=== PATIENT | female | born 1965 | race Caucasian/White ===

== ENCOUNTER 2016-11-25 19:28 | Emergency (ER) | payer OTHER ==
[2016-11-25 19:58] VITALS: BP 131/79
--- NOTE | 2016-11-25 20:33 | UC ---
Abdominal Pain Female HPI - HPI Summary HPI Summary: Abdominal pain since last night, fever today. Feels very gassy and distended, lots of stomach gurgling, poor appetite. Last night had urinary frequency without pain. Today pain with position changes, feels betting lying curled up. Has had gallbladder pain in the past, but that is in an entirely different place. Last BM 2 days ago, she thinks. - History of Current Complaint Chief Complaint: UCAbdominalPain Stated Complaint: ABDOMINAL PAIN Time Seen by Provider: 11/25/16 20:09 Hx Obtained From: Patient Hx Last Menstrual Period: 2 weeks ago ?: No Onset/Duration: Gradual Onset, Lasting Hours Timing: Constant Severity Initially: Moderate Severity Currently: Moderate Location: Diffuse, Epigastric Radiates: No Character: Cramping, Dull Aggravating Factor(s): Nothing Alleviating Factor(s): Nothing Associated Signs and Symptoms: Positive: Fever, Urinary Symptoms. Negative: Blood in Stool, Vaginal Bleeding, Vaginal Discharge, Nausea, Vomiting, Diarrhea Allergies/Adverse Reactions: Allergies Allergy/AdvReac Type Severity Reaction Status Date / Time Sulfites Allergy Rash Verified 11/25/16 19:51 PMH/Surg Hx/FS Hx/Imm Hx Endocrine History Of: Denies: Diabetes Cardiovascular History Of: Denies: Hypertension, Pacemaker/ICD Respiratory History Of: Denies: Asthma GI/ History Of: Denies: Renal Disease - Surgical History Surgical History: Yes Surgery Procedure, Year, and Place: [id number] - Family History Known Family History: Positive: Other - biliary colic - Social History Lives: With Family Alcohol Use: Daily Substance Use Type: None Smoking Status (MU): Never Smoked Tobacco Review of Systems Constitutional: Negative Skin: Negative Eyes: Negative ENT: Negative Respiratory: Negative Cardiovascular: Negative Gastrointestinal: Abdominal Pain Genitourinary: Negative Motor: Negative Neurovascular: Negative Musculoskeletal: Negative Neurological: Negative Psychological: Negative All Other Systems Reviewed And Are Negative: Yes Physical Exam Triage Information Reviewed: Yes Appearance: Well-Nourished, Pain Distress - mild Vital Signs: Initial Vital Signs Temp 100.7 F 11/25/16 19:52 Pulse 93 11/25/16 19:52 Resp 16 11/25/16 19:52 BP 131/79 11/25/16 19:52 Pulse Ox 96 11/25/16 19:52 Vital Signs Reviewed: Yes Eye Exam: Normal Eyes: Positive: Conjunctiva Clear ENT Exam: Normal ENT: Positive: Normal ENT inspection, Hearing grossly normal, Pharynx normal, TMs normal Dental Exam: Normal Neck exam: Normal Neck: Positive: Supple, Nontender, No Lymphadenopathy Respiratory Exam: Normal Respiratory: Positive: Chest non-tender, Lungs clear, Normal breath sounds, No respiratory distress, No accessory muscle use Cardiovascular Exam: Normal Cardiovascular: Positive: RRR, No Murmur Abdomen Description: Positive: Distended, Guarding, Peritoneal Signs. Negative : Nontender - diffuse tenderness, worse at epigastrum, CVA Tenderness (R), CVA Tenderness (L), McBurney's Point Tenderness Bowel Sounds: Positive: Present - hyperactive Musculoskeletal Exam: Normal Neurological Exam: Normal Neurological: Positive: Alert Psychological Exam: Normal Skin Exam: Normal Abd Pain Female Course/Dx - Differential Dx/Diagnosis Differential Diagnosis: Appendicitis, Bowel Obstruction, Constipation, Diverticulitis, Gall Bladder Disease, Pneumonia, Urinary Tract Infection Provider Diagnoses: epigastric abdominal pain. fever Discharge - Discharge Plan Condition: Stable Disposition: AGAINST MEDICAL ADVICE Patient Education Materials: Acute Abdominal Pain (ED) Referrals: Gary Hurley MD [Primary Care Provider] - Additional Instructions: As we discussed, I am unable to determine the cause of your pain here tonight. However, several features of your symptoms make me concerned that you may have a serious problem. Pain in the upper abdomen can come from the stomach, esophagus, gallbladder, liver, pancreas, diaphragm, lungs, heart, or intestines. Your fever and level of pain suggest a possible infection. Please go right to the hospital if you experience worsening pain, vomiting, shaking chills, prolonged fever, or if you fail to improve in the next few hours.
== END 2016-11-25 20:39 | disposition left against medical advice (07) ==
LOC: UCEAST 19:28
DX: R10.13 Epigastric pain (principal); R50.9 Fever, unspecified; R35.0 Frequency of micturition
CPT/HCPCS: 81003; 99212; G0463

== ENCOUNTER 2017-01-07 21:01 | Emergency (ER) | payer OTHER ==
[2017-01-07 21:11] VITALS: BP 148/97
--- NOTE | 2017-01-07 21:30 | UC ---
UC General HPI - HPI Summary HPI Summary: The patient comes in today for: 1. Abdominal bloating/enlargement: Onset: Today. Palliative/provocative: Not eating makes it better. Quality: No pain at this time. Region: ABdomen Severity: 0/10 Time: Constant. Associated symptoms: Fevers: None. Vomiting: None Diarrhea: None Previous disease: She had this before about 1.5 months ago. It got better, but would tend to come and go. She saw her primary care provider for this as well as the GI provider. The diagnosis was never mentioned. But, they ordered CT scan and "update test" for "fermentation solution." She had also an order for a colonoscopy which has not been done. She went to the CT scan but later decided to not do it. The patient states that she called her primary care provider's answering service and was told to come in to see us or go to the ER. - History of Current Complaint Chief Complaint: UCAbdominalPain Stated Complaint: ABD SWELLING,HIP AND BACK PAIN Time Seen by Provider: 01/07/17 21:19 Hx Obtained From: Patient, Family/Deburrer - Allergy/Home Medications Allergies/Adverse Reactions: Allergies Allergy/AdvReac Type Severity Reaction Status Date / Time Sulfites Allergy Rash Verified 01/07/17 21:11 ANESTHESIA Allergy MADE PT Uncoded 01/02/17 09:27 COLD AND SHAKY DURING C SECTIONS PMH/Surg Hx/FS Hx/Imm Hx Previously Healthy: No - Back pain on Flexeril - Surgical History Surgical History: Yes Surgery Procedure, Year, and Place: [id number] - Family History Known Family History: Positive: Cardiac Disease, Other - biliary colic Negative: Hypertension - Social History Occupation: Employed Full-time Alcohol Use: Daily Substance Use Type: None Smoking Status (MU): Never Smoked Tobacco Review of Systems Constitutional: Negative Skin: Negative Eyes: Negative ENT: Negative Respiratory: Negative Cardiovascular: Negative Gastrointestinal: Negative Genitourinary: Negative All Other Systems Reviewed And Are Negative: Yes Physical Exam Triage Information Reviewed: Yes Appearance: Well-Appearing, No Pain Distress, Well-Nourished Vital Signs: Initial Vital Signs Temp 98.4 F 01/07/17 21:11 Pulse 92 01/07/17 21:11 Resp 16 01/07/17 21:11 BP 148/97 01/07/17 21:11 Pulse Ox 96 01/07/17 21:11 Vital Signs Reviewed: Yes Eyes: Positive: Conjunctiva Clear. Negative: Discharge ENT: Positive: Hearing grossly normal. Negative: Pharyngeal erythema, Nasal congestion, Nasal drainage, TM bulging, TM dull, TM red, Tonsillar swelling, Tonsillar exudate Dental: Negative: Gross Decay/Caries @, Dental Fracture @ Neck: Positive: Supple, Nontender, No Lymphadenopathy. Negative: Nuchal Rigidity Respiratory: Positive: Chest non-tender, Lungs clear, No respiratory distress, No accessory muscle use. Negative: Crackles, Wheezing Cardiovascular: Positive: RRR, No Murmur Abdomen Description: Positive: Nontender, No Organomegaly, Soft, Other: - Increase in tympany.. Negative: Distended, Guarding Bowel Sounds: Positive: Present Musculoskeletal: Positive: Strength Intact, ROM Intact, No Edema Neurological: Positive: Alert, Muscle Tone Normal Psychological: Positive: Age Appropriate Behavior, Consolable Skin: Negative: rashes, breakdown Course/Dx - Course Course Of Treatment: Patient was told that her benign exam at this time suggests that she does not need to go to the ER. 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 - Differential Dx - Multi-Symptom Provider Diagnoses: Abdominal bloating. Discharge - Discharge Plan Condition: Stable Disposition: HOME Patient Education Materials: Gas and Bloating (ED) Referrals: Gary Hurley MD [Primary Care Provider] - As Soon As Possible (Please contact your primary care provider tomorrow for a follow-up appointment.)
== END 2017-01-07 22:15 | disposition home or self-care (01) ==
LOC: UCEAST 21:01
DX: R14.0 Abdominal distension (gaseous) (principal)
CPT/HCPCS: 99212; G0463

== ENCOUNTER 2018-07-06 10:54 | Emergency (ER) | payer OTHER ==
[2018-07-06 11:13] VITALS: BP 138/96
--- NOTE | 2018-07-06 11:21 | UC ---
Lower Extremity/Ankle HPI - HPI Summary HPI Summary: 52-year-old woman comes to clinic today after falling off a horse. This happened yesterday. Her chief complaint is pain at the right ankle foot and the right fourth finger. All these areas are bruised and swollen and tender to palpation and they hurt with movement better with rest. Denies any other injuries. Patient has a right fourth finger that she's declining to have taken off. - History of Current Complaint Chief Complaint: UCLowerExtremity Stated Complaint: R HAND, ANKLE INJURY Time Seen by Provider: 07/06/18 11:05 Hx Last Menstrual Period: na Pain Intensity: 1 - Allergies/Home Medications Allergies/Adverse Reactions: Allergies Allergy/AdvReac Type Severity Reaction Status Date / Time Sulfa (Sulfonamide Allergy Mild Rash Verified 07/06/18 11:14 Antibiotics) ANESTHESIA AdvReac MADE PT Uncoded 06/27/17 10:48 COLD AND SHAKY DURING C SECTIONS PMH/Surg Hx/FS Hx/Imm Hx Previously Healthy: Yes - Surgical History Surgical History: Yes Surgery Procedure, Year, and Place: [id number]. EXPLORATORY SURG TO HYSTERECTOMY - Family History Known Family History: Positive: Cardiac Disease, Other - biliary colic Negative: Hypertension - Social History Alcohol Use: Daily Substance Use Type: None Smoking Status (MU): Never Smoked Tobacco Review of Systems All Other Systems Reviewed And Are Negative: Yes Constitutional: Positive: Negative Skin: Positive: Bruising Eyes: Positive: Negative ENT: Positive: Negative Respiratory: Positive: Negative Cardiovascular: Positive: Negative Motor: Positive: Negative Neurovascular: Positive: Negative Musculoskeletal: Positive: Other: - SEE HPI Neurological: Positive: Negative Psychological: Positive: Negative Is Patient Immunocompromised?: No Physical Exam Triage Information Reviewed: Yes Appearance: Well-Appearing, Well-Nourished, Pain Distress - MILD Vital Signs: Initial Vital Signs Temp 98.6 F 07/06/18 11:05 Pulse 75 07/06/18 11:05 Resp 18 07/06/18 11:05 BP 138/96 07/06/18 11:05 Pulse Ox 100 07/06/18 11:05 Vital Signs Reviewed: Yes Eye Exam: Normal Eyes: Positive: Conjunctiva Clear Neck exam: Normal Neck: Positive: Supple, Nontender Respiratory: Positive: Lungs clear, Normal breath sounds, No respiratory distress Cardiovascular Exam: Normal Cardiovascular: Positive: RRR Abdomen Description: Positive: Nontender, Soft Bowel Sounds: Positive: Present Musculoskeletal: Positive: Other: - Patient's fourth finger is swollen with ecchymosis the full length of the finger. She has pain with any attempt at range of motion. She does have a ring on that finger that she refuses to take off or have us cut it off. Right ankle and foot are swollen and tender on the lateral aspects over the lateral malleolus and the proximal fifth metatarsal. Normal capillary refill normal pulses no sensation deficits in any of these injured areas. Neurological Exam: Normal Neurological: Positive: Alert, Muscle Tone Normal Psychological Exam: Normal Psychological: Positive: Normal Response To Family, Age Appropriate Behavior Skin: Positive: Other - BRUISING RT 4TH FINGER AND LATERAL RT ANKLE AND FOOT Lower Extremity Course/Dx - Course Course Of Treatment: Order Information: FOOT RIGHT 3+ VWS. Accession Number: [id number]. CPT: 06478. Indication: RIGHT ankle and foot pain post fall from horse. Previous fifth metatarsal. fracture in 2013. Comparison: July 08, 2014 radiographs. Technique: AP, lateral, and oblique views RIGHT foot. REPORT AND IMPRESSION: #. Bone density appears decreased throughout. #. Healed fracture at the distal diaphysis metaphysis junction of the fifth metatarsal. #. No acute fracture or articular malalignment. #. Mild nonfocal soft tissue swelling. ___. <Electronically signed by Howard Villanueva MD in [place]> 07/06/18 1151. Order Information: FINGER RIGHT RING. Accession Number: [id number]. CPT: 09400. Indication: Pain and swelling post fall from horse. Comparison: July 15, 2014 DEXA scan. Technique: 3 views RIGHT fourth finger. REPORT AND IMPRESSION: #. Mildly comminuted fracture involving the proximal metaphysis through head of the. fourth middle phalanx with only minimal resulting articular surface incongruity. #. Soft tissue swelling from the level of a constricting ring (extrinsic jewelry) at the. level of the proximal diaphysis of the proximal phalanx extending distal. #. Normal articular alignment. . < Electronically signed by Howard Villanueva MD in [facility]> 07/06/18 1159. Order Information: ANKLE RIGHT 3+VWS. Accession Number: [id number]. CPT: 84678. Indication: RIGHT ankle and foot pain post fall from horse. Comparison: July 08, 2014 RIGHT foot exam. Technique: AP, mortise, and lateral views RIGHT ankle. Report: Negative for fracture or malalignment. Preserved joint spaces. Os peroneum. accessory ossicles noted. Mild nonfocal soft tissue swelling. IMPRESSION: #. Negative for RIGHT ankle fracture or malalignment. _ . <Electronically signed by Howard Villanueva MD in [place]> 07/06/18 5074. I discussed the x-ray results with the patient and her family. The patient again refused to have her ring removed from her fractured right ring finger. The finger has good capillary refill at this time the ring can be spun around the finger but it cannot be removed without cutting the ring at this time. I let the patient know to keep the hand elevated and if she felt like she was losing circulation in the finger she needs to get the ring cut off right away either here or at the emergency department. The finger was splinted and for the ankle and foot Severiano wrap and gel splint was applied by nursing. All these areas were neurovascularly intact after splinting. Patient will follow-up with orthopedics. Reevaluation sooner if worse. - Differential Dx/Diagnosis Provider Diagnosis: Fracture of phalanx of right ring finger, Right ankle sprain, Right foot sprain Discharge - Sign-Out/Discharge Documenting (check all that apply): Patient Departure All imaging exams completed and their final reports reviewed: Yes - Discharge Plan Condition: Stable Disposition: HOME Patient Education Materials: Finger Fracture (ED), Ankle Sprain (ED), Foot Sprain (ED) Referrals: Gary Hurley MD [Primary Care Provider] - Yvonne Rivero MD [Medical Doctor] - Additional Instructions: FOLLOW UP WITH DR RIVERO, ORTHOPEDICS. GET RECHECKED SOONER FOR ANY WORSENING OF YOUR CONDITION; PAIN, LOSS OF CIRCULATION OR QUESTIONS OR CONCERNS. GET THE RING CUT OFF EITHER HERE OR IN THE EMERGENCY DEPARTMENT. - Billing Disposition and Condition Condition: STABLE Disposition: Home
== END 2018-07-06 12:20 | disposition home or self-care (01) ==
LOC: UCEAST 10:54
DX: S62.654A Nondisplaced fracture of middle phalanx of right ring finger, initial encounter for closed fracture (principal); S93.401A Sprain of unspecified ligament of right ankle, initial encounter; S93.601A Unspecified sprain of right foot, initial encounter; V80.010A Animal-rider injured by fall from or being thrown from horse in noncollision accident, initial encounter; Y93.52 Activity, horseback riding; Y92.9 Unspecified place or not applicable; Z88.4 Allergy status to anesthetic agent; Z88.2 Allergy status to sulfonamides
CPT/HCPCS: 73140; 99213; G0463

== ENCOUNTER 2018-08-19 13:48 | Emergency (ER) | payer OTHER ==
--- NOTE | 2018-08-19 13:51 | UC ---
Lower Extremity/Ankle HPI - HPI Summary HPI Summary: 53 yo female presents with RIGHT ankle pain. 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 Has had pain since and has not been able to put much weight on her foot/ankle. She has taken 400mg ibuprofen for her discomfort. Denies numbness or tingling. - History of Current Complaint Stated Complaint: ANKLE INJURY Time Seen by Provider: 08/19/18 13:50 Hx Obtained From: Patient Hx Last Menstrual Period: na Onset/Duration: Sudden Onset Severity Initially: Moderate Severity Currently: Moderate Pain Intensity: 6 Pain Scale Used: 0-10 Numeric Aggravating Factor(s): Standing, Ambulation Alleviating Factor(s): Rest, Elevation, Ice Able to Bear Weight: Yes - Allergies/Home Medications Allergies/Adverse Reactions: Allergies Allergy/AdvReac Type Severity Reaction Status Date / Time Sulfa (Sulfonamide Allergy Mild Rash Verified 07/06/18 11:14 Antibiotics) ANESTHESIA AdvReac MADE PT Uncoded 06/27/17 10:48 COLD AND SHAKY DURING C SECTIONS Home Medications: Home Medications Ibuprofen 200 mg PO SEE INSTRUCTIONS PRN 08/19/18 [History Confirmed 08/19/18] PMH/Surg Hx/FS Hx/Imm Hx - Additional Past Medical History Additional PMH: None - Surgical History Surgical History: Yes Surgery Procedure, Year, and Place: [id number]. EXPLORATORY SURG TO HYSTERECTOMY - Family History Known Family History: Positive: Cardiac Disease, Other - biliary colic Negative: Hypertension - Social History Alcohol Use: Daily Substance Use Type: None Smoking Status (MU): Never Smoked Tobacco Review of Systems All Other Systems Reviewed And Are Negative: Yes Constitutional: Positive: Negative Skin: Positive: Negative Respiratory: Positive: Negative Cardiovascular: Positive: Negative Neurovascular: Positive: Negative Musculoskeletal: Positive: Other: - Right ankle pain Neurological: Positive: Negative Psychological: Positive: Negative Physical Exam - Summary Physical Exam Summary: GENERAL: NAD. WDWN. No pain distress. SKIN: No rashes, sores, lesions, or open wounds. CHEST: No accessory muscle use. Breathing comfortably and in no distress. CV: Pulses intact PT and DP. Cap refill <2seconds MSK: RIGHT ANKLE: Moderate TTP over ATFL. Decreased inversion and plantar flexion due to pain. No edema or obvious bony deformities. Negative talar tilt. No increased laxity. NEURO: Alert. Sensations intact and symmetric B/L LEs PSYCH: Age appropriate behavior. Triage Information Reviewed: Yes Vital Signs: Vital Signs: Temp Pulse Resp BP Pulse Ox 98.6 F 77 18 140/93 100 08/19/18 13:58 08/19/18 13:58 08/19/18 13:58 08/19/18 13:58 08/19/18 13:58 Vital Signs Reviewed: Yes Lower Extremity Course/Dx - Course Course Of Treatment: XR: IMPRESSION: #. Mild soft tissue swelling over the lateral malleolus without evidence for fracture or. malalignment. Pt placed in CAM boot and advised to RICE and use crutches as needed. F/u with orthopedics if symptoms do not improve. - Differential Dx/Diagnosis Provider Diagnosis: Right ankle sprain Discharge - Sign-Out/Discharge Documenting (check all that apply): Patient Departure All imaging exams completed and their final reports reviewed: Yes - Discharge Plan Condition: Stable Disposition: HOME Patient Education Materials: Ankle Sprain (ED) Forms: *Work Release Referrals: Gary Hurley MD [Primary Care Provider] - Shay Contreras MD [Medical Doctor] - If Needed Additional Instructions: If you develop a fever, shortness of breath, chest pain, new or worsening symptoms - please call your PCP or go to the ED. Your blood pressure was high at todays visit. Please see your primary provider within 4 weeks for recheck and re-evaluation. 1) Rest, Ice, and elevate your ankle/foot as much as possible 2) Use the walking boot as much as possible to relieve pain 3) Please call Orthopedics at the number below to schedule a follow up appointment if needed - Billing Disposition and Condition Condition: STABLE Disposition: Home - Attestation Statements Provider Attestation: I was available for consult. This patient was seen by the JOSIAS. The patient was not presented to, seen by, or examined by me. -Kaila
--- OUTSIDE RECORDS SUMMARY | 2018-08-19 13:53 | XMS REPORT | Continuity of Care Document ---
:1965 External Reference #:[id number] Author Name Tiffany Salazar Care Team Providers Name Role Phone Gary Hurley MD Primary Care Physician Unavailable Payers Type Date Identification Numbers Payment Provider Subscriber Policy Number: [id number] [employer] Number: [id number] [address] PayID: [id number] [place] [address] Advance Directives Description No Information Available Problems Description No Information Family History Date Family Member(s) Problem(s) Comments General diabetes General Colon Cancer General Kidney Disease Born with one kidney General Aortic Aneurysm General Epilepsy Social History Type Date Description Comments Sex Unknown Lives With Family ETOH Use Occasionally consumes alcohol Tobacco Use Start: Unknown Patient has never smoked Recreational Drug Use Never Used Drugs Smoking Status Reviewed: 08/07/18 Patient has never smoked Exercise Type/Frequency Exercises regularly Allergies, Adverse Reactions, Alerts Date Description Reaction Status Severity Comments 03/11/2017 Sulfites eczema Active Medications Description No Active Medications Immunizations CPT Code Status Date Vaccine Lot # [id number] Given 05/13/2010 Influenza Virus 3Yrs & Over Vital Signs Date Vital Result Comment 08/07/2018 9:39am Height 68.5 inches 5'8.50" Weight 160.00 lb Heart Rate 68 /min BP Systolic 118 mmHg BP Diastolic 80 mmHg Respiratory Rate 18 /min Pain Level 2 BMI (Body Mass Index) 24.0 kg/m2 07/16/2018 10:15am Height 68.5 inches 5'8.50" Weight 160.00 lb Heart Rate 64 /min BP Systolic Sitting 122 mmHg BP Diastolic Sitting 90 mmHg Pain Level 1 BMI (Body Mass Index) 24.0 kg/m2 07/08/2018 10:14am Height 68.5 inches 5'8.50" Weight 160.00 lb Heart Rate 74 /min BP Systolic Sitting 118 mmHg BP Diastolic Sitting 88 mmHg Pain Level 1 BMI (Body Mass Index) 24.0 kg/m2 03/11/2017 10:51am Height 68.5 inches 5'8.50" Weight 146.50 lb Heart Rate 72 /min BP Systolic Sitting 126 mmHg BP Diastolic Sitting 80 mmHg Pain Level 3 BMI (Body Mass Index) 21.9 kg/m2 08/26/2014 8:42am Height 68.5 inches 5'8.50" Heart Rate 79 /min BP Systolic 137 mmHg BP Diastolic 88 mmHg 08/05/2014 10:05am Height 68.5 inches 5'8.50" Heart Rate 72 /min 07/12/2014 2:18pm Height 68.5 inches 5'8.50" Heart Rate 72 /min BP Systolic 134 mmHg BP Diastolic 75 mmHg Results Description No Information Available Procedures Date Code Description Status 08/05/2014 28316 Rad Exam; Foot Limited Completed 07/14/2014 635166256 Bone Mineral Density Test Completed 07/12/2014 36649 FX Metatarsal Care Completed Encounters Type Date Location Provider Dx Diagnosis Office Visit 07/16/2018 Orthopedic Latha Raymundo, S62.654A Nondisp fx of 10:00a [facility] middle phalanx of right ring finger, init S93.401D Sprain of unspecified ligament of right ankle, subs encntr Office Visit 07/08/2018 9:30a Orthopedic Samuel S93.401A Sprain of [facility] unspecified C.M.A. ligament of right ankle, init encntr S62.604B Fracture of unsp phalanx of r rng fngr, init for opn fx Office Visit 03/11/2017 10:45a Neurosurgery Peggy Hoskins, M46.1 Sacroiliitis, not [facility] elsewhere classified Plan of Treatment Future Appointment(s):08/28/2018 9:15 am - Latha Raymundo M.D. at [facility]08/07/2018 - Sheridan Schuster, [facility]-CS62.654D Nondisplaced fracture of middle phalanx of right ring fingerNew Therapy:Physical TherapyFollow up:Follow up: 2 -3 weeks
[2018-08-19 14:07] VITALS: BP 140/93
[2018-08-19] MEDS ORDERED: Ibuprofen TAB* 600 MG PO ONE (14:08)
== END 2018-08-19 15:07 | disposition home or self-care (01) ==
LOC: UCEAST 13:48
DX: S93.401A Sprain of unspecified ligament of right ankle, initial encounter (principal); X50.1XXA Overexertion from prolonged static or awkward postures, initial encounter; Y92.9 Unspecified place or not applicable; Z88.4 Allergy status to anesthetic agent; Z88.2 Allergy status to sulfonamides
CPT/HCPCS: 99213; G0463

== ENCOUNTER 2019-08-17 22:03 | Emergency (ER) | payer OTHER ==
--- OUTSIDE RECORDS SUMMARY | 2019-08-17 22:15 | XMS REPORT | Continuity of Care Document ---
:1965 External Reference #:[id number] Author Name Tati Silvestre MD (transmitted by agent of provider Olman Madrid) Address [address] [place] [address] Care Team Providers Name Role Phone Gary Hurley MD - Family Care Team Information Collar Separator [phone] Medicine Problems Description No Information Available Social History Type Date Description Comments Sex Unknown ETOH Use Occasionally consumes alcohol Tobacco Use Start: Unknown Patient has never smoked Recreational Drug Use Never Used Drugs Smoking Status Reviewed: 07/16/19 Patient has never smoked Exercise Type/Frequency Exercises regularly Allergies, Adverse Reactions, Alerts Active Allergies Reaction Severity Comments Date Sulfites eczema 03/11/2017 Terconazole "too strong" 07/14/2019 Medications Description No Active Medications Immunizations CPT Code Status Date Vaccine Lot # [id number] Given 05/13/2010 Influenza Virus 3Yrs & Over Vital Signs Date Vital Result Comment 07/16/2019 9:38am Height 68.5 inches 5'8.50" Weight 160.00 lb Heart Rate 84 /min BP Systolic Sitting 128 mmHg BP Diastolic Sitting 80 mmHg Respiratory Rate 16 /min Body Temperature 97.2 F BMI (Body Mass Index) 24.0 kg/m2 08/28/2018 9:22am Height 68.5 inches 5'8.50" Weight 160.00 lb BP Systolic 128 mmHg BP Diastolic 86 mmHg Respiratory Rate 16 /min Body Temperature 97.0 F Pain Level 2 BMI (Body Mass Index) 24.0 kg/m2 Results Description No Information Available Procedures Date Code Description Status 06/24/2019 95752025 Mammogram Completed 07/14/2014 [id number] Bone Mineral Density Test Completed Medical Devices Description No Information Available Encounters Type Date Location Provider Dx Diagnosis Office Visit 07/[facility] T[facility] Silvest[facility], N64.59 Other signs and 9:30a [facility] MD symptoms in breast Assessments Date Code Description Provider 07/16/2019 N64.59 Other signs and symptoms in breast Tati Silvestre MD Plan of Treatment Future Appointment(s):08/26/2019 9:00 am - Tati Silvestre MD at [facility]07/16/2019 - Tati Silvestre [id number] Other signs and symptoms in breastReferral:Rebel Rivera M.D., Hematology & OncologyFollow up:6 weeks Functional Status Description No Information Available Mental Status Description No Information Available Referrals Refer to Reason for Referral Status Appt Date Rebel Rivera M.D. Pt. has FH of breast and colon cancer; Created consideration for genetic testing [address] [place] [phone]
--- NOTE | 2019-08-17 22:52 | ED ---
Upper Extremity Pain - HPI Summary HPI Summary: Pt is a 54 y/o F presenting to the ED with a chief complaint of R middle finger pain. She was riding a horse today when the reigns twisted and she hurt her finger, she notes edema and decreased ROM associated w/ the pain. She denies other symptoms, including shortness of breath. - History of Current Complaint Chief Complaint: EDExtremityUpper Stated Complaint: RT MIDDLE FINGER INJURY PER PT Hx Obtained From: Patient Hx Last Menstrual Period: na Mechanism Of Injury: Other - horse reigns Onset/Duration: Started Hours Ago, Still Present Timing: Constant, Lasting Hours Severity Initially: Moderate Severity Currently: Moderate Pain Location: Finger Aggravating Factor(s): Movement Alleviating Factor(s): Nothing - Allergies/Home Medications Allergies/Adverse Reactions: Allergies Allergy/AdvReac Type Severity Reaction Status Date / Time Sulfa (Sulfonamide Allergy Mild Rash Verified 08/17/19 22:09 Antibiotics) ANESTHESIA AdvReac MADE PT Uncoded 08/17/19 22:09 COLD AND SHAKY DURING C SECTIONS PMH/Surg Hx/FS Hx/Imm Hx Endocrine/Hematology History: Denies: Hx Diabetes, Hx Thyroid Disease Cardiovascular History: Denies: Hx Hypertension, Hx Pacemaker/ICD Respiratory History: Denies: Hx Asthma, Hx Chronic Obstructive Pulmonary Disease (COPD) GI History: Denies: Hx Ulcer History: Reports: Hx Renal Disease - hx 1 kidney Denies: Hx Dialysis Musculoskeletal History: Comment Only: Hx Osteoporosis - FAMILY HX Sensory History: Denies: Hx Hearing Aid Psychiatric History: Denies: Hx Panic Disorder - Cancer History Cancer Type, 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 EXPLORATORY SURG TO HYSTERECTOMY Infectious Disease History: No Infectious Disease History: Reports: Traveled Outside the [place] in Last 30 Days Denies: Hx Clostridium Difficile, Hx Hepatitis, Hx Human Immunodeficiency Virus (HIV), Hx of Known/Suspected MRSA, Hx Shingles, Hx Tuberculosis, Hx Known/ Suspected VRE, Hx Known/Suspected VRSA, History Other Infectious Disease - Family History Known Family History: Positive: Cardiac Disease, Other - biliary colic Negative: Hypertension - Social History Alcohol Use: Daily Substance Use Type: Reports: None Smoking Status (MU): Never Smoked Tobacco Review of Systems Negative: Shortness Of Breath Positive: Arthralgia, Decreased ROM, Edema All Other Systems Reviewed And Are Negative: Yes Physical Exam - Summary Physical Exam Summary: Appearance: Well-appearing, Well-nourished, lying in bed comfortable Skin: Warm, dry, no obvious rash Eyes: sclera anicteric, no conjunctival pallor ENT: mucous membranes moist Neck: deferred Respiratory: No signs of respiratory distress Cardiovascular: Appears well perfused, pulses are nml Abdomen: deferred Musculoskeletal: Moving all 4 extremities without obvious discomfort. R middle finger shows fusiform of the proximal phalanx. No obvious deformity, good perfusion. Neurological: Awake and alert, mentation is normal, speech is fluent and appropriate Psychiatric: affect is normal, does not appear anxious or depressed Triage Information Reviewed: Yes Vital Signs On Initial Exam: Initial Vitals Temp Pulse Resp BP Pulse Ox 97.8 F 71 15 136/94 99 08/17/19 22:07 08/17/19 22:07 08/17/19 22:07 08/17/19 22:07 08/17/19 22:07 Vital Signs Reviewed: Yes Procedures - Sedation Patient Received Moderate/Deep Sedation with Procedure: No - Splinting Right 3rd Digit Pre-Made Type: metal Pre-Proc Neuro Vasc Exam: normal Post-Proc Neuro Vasc Exam: normal Splint Applied by Provider: Sachin Reyes - Vital Signs Vital Signs Temp Pulse Resp BP Pulse Ox 08/17/19 22:07 97.8 F 71 15 136/94 99 - Laboratory Lab Statement: Any lab studies that have been ordered have been reviewed, and results considered in the medical decision making process. - Radiology Finger XR Radiology Interpretation Completed By: ED Physician Summary of Radiographic Findings: Negative for fracture. Pending official radiology report. Course/Dx - Course Course Of Treatment: Pt is a 54 y/o F presenting to the ED with a chief complaint of R middle finger pain. She was riding a horse today when the reigns twisted and she hurt her finger, she notes edema and decreased ROM associated w / the pain. She denies other symptoms, including shortness of breath. Pt's physical exam shows fusiform of the proximal phalanx of the R middle finger. No obvious deformity, good perfusion. Finger XR is negative for fracture, pending official radiology report. Splint applied. Pt will be d/c'ed with dx of finger sprain. - Diagnoses Provider Diagnoses: Finger sprain Discharge ED - Sign-Out/Discharge Documenting (check all that apply): Patient Departure - Discharge Plan Condition: Good Disposition: HOME Patient Education Materials: Finger Sprain (ED) Referrals: Yvonne Edgar MD [Medical Doctor] - 1 Week (if not healing well) - Billing Disposition and Condition Condition: GOOD Disposition: Home - Attestation Statements Document Initiated by Scribe: Yes Documenting Scribe: Sonali Priest Provider For Whom Godwin is Documenting (Include Credential): Sachin Reyes MD. Scribe Attestation: Sonali Ayala, scribed for Sachin Reyes MD. on 08/19/19 at 0405. Scribe Documentation Reviewed: Yes Provider Attestation: The documentation as recorded by the scribe, Sonali Priest accurately reflects the service I personally performed and the decisions made by me, Sachin Reyes MD. Status of Scribe Document: Viewed
[2019-08-17 23:39] VITALS: BP 166/84
--- NOTE | 2019-08-18 10:38 | ED ---
Imaging and Labs Follow Up Follow Up Type: Imaging Imaging Result: IMPRESSION: PROBABLE NONDISPLACED FRACTURE AT THE BASE OF THE PROXIMAL PHALANX. R3 Preliminary Imaging Read R3 Patient Communication/Plan: Pt. treated with finger splint and ortho. [email or web address].[email or web address]. Attempted to call pt. today at 1038 with no answer. Message left to return call. No change in treatment needed at this time. Provider Diagnoses: Finger sprain
== END 2019-08-17 23:37 | disposition home or self-care (01) ==
LOC: ED 22:03
DX: S63.612A Unspecified sprain of right middle finger, initial encounter (principal); X50.9XXA Other and unspecified overexertion or strenuous movements or postures, initial encounter; Y93.52 Activity, horseback riding; Y92.9 Unspecified place or not applicable; Z85.828 Personal history of other malignant neoplasm of skin
CPT/HCPCS: 73140; 99282